=== PATIENT | male | born 1975 | race Caucasian/White ===

== ENCOUNTER 2017-03-17 16:53 | Emergency (ER) | payer SELFPAY ==
[2017-03-17] MEDS ORDERED: Lidocaine 1% 10 ML MDV INJECT ONE (17:22)
--- NOTE | 2017-03-17 18:17 | EDM.PDOC ---
ED HPI GENERAL MEDICAL PROBLEM - General Chief Complaint: Laceration Stated Complaint: LACERATION TO R MIDDLE FINGER Time Seen by Provider: 03/17/17 17:12 Source of Information: Reports: Patient History Limitations: Reports: No Limitations - History of Present Illness INITIAL COMMENTS - FREE TEXT/NARRATIVE: The patient presents with a laceration to his right 3rd finger. This happened while washing dishes. He cut it on some glass. He is right handed. His tetanus is up to date. He can move his finger good. Onset: Sudden Duration: Minutes: Location: Reports: Upper Extremity, Right (3rd finger) Quality: Reports: Sharp Severity: Mild Improves with: Reports: None Worsens with: Reports: None Context: Reports: Activity (washing dishes) Associated Symptoms: Reports: No Other Symptoms Right 3-Middle finger Pain Score (Numeric/FACES): 2 - Related Data Allergies Allergy/AdvReac Type Severity Reaction Status Date / Time No Known Allergies Allergy Verified 03/17/17 17:18 Home Meds: Home Meds . [No Known Home Meds] 03/17/17 [History] Past Medical History - Past Health History Medical/Surgical History: Denies Medical/Surgical History Social & Family History - Tobacco Use Smoking Status *Q: Never Smoker - Caffeine Use Caffeine Use: Reports: Coffee, Energy Drinks, Soda - Recreational Drug Use Recreational Drug Use: No ED ROS GENERAL - Review of Systems Review Of Systems: See Below Constitutional: Reports: No Symptoms HEENT: Reports: No Symptoms Respiratory: Reports: No Symptoms Cardiovascular: Reports: No Symptoms Endocrine: Reports: No Symptoms GI/Abdominal: Reports: No Symptoms : Reports: No Symptoms Musculoskeletal: Reports: Other (3cm laceration to his right 3rd finger) ED EXAM, SKIN/RASH Exam: See Below Exam Limited By: No Limitations General Appearance: Alert, No Apparent Distress Ears: Normal External Exam Nose: Normal Inspection Head: Atraumatic, Normocephalic Neck: Normal Inspection Respiratory/Chest: No Respiratory Distress Extremities: Other (3cm laceration at the base of his right 3rd finger on the dorsal aspect. No tendon laceration is seen. Good sensation and capillary refill distally.) ED SKIN PROCEDURES - Laceration/Wound Repair Right Finger Lac/Wound length In cm: 3 Appearance: Subcutaneous, Linear Distal NVT: Neuro & Vascular Intact, No Tendon Injury Anesthetic Type: Local Local Anesthesia - Lidocaine (Xylocaine): 1% Plain Skin Prep: Saline Exploration/Debridement/Repair: Wound Explored, In a Bloodless Field, Explored to Base Closed with: Sutures Suture Size: 4-0 # of Sutures: 5 Suture Type: Nylon, Interrupted, Simple Tetanus Status Addressed: Yes Complications: No Course - Vital Signs Last Recorded V/S: Last Vital Signs Temp 98.3 F 03/17/17 17:15 Pulse 61 03/17/17 17:15 Resp 20 03/17/17 17:15 BP 131/85 03/17/17 17:15 Pulse Ox 97 03/17/17 17:15 - Orders/Labs/Meds Meds: Medications Discontinued Medications Generic Name Dose Route Start Last Admin Trade Name Freq PRN Reason Stop Dose Admin Lidocaine HCl 10 ml 03/17/17 17:22 03/17/17 17:39 Xylocaine 1% INJECT 03/17/17 17:23 10 ml ONETIME ONE Administration Departure - Departure Time of Disposition: 18:20 Disposition: Home, Self-Care 01 Condition: Good Clinical Impression: Laceration of right middle finger Qualifiers: Encounter type: initial encounter Damage to nail status: without damage Foreign body presence: without foreign body Qualified Code(s): S61.212A - Laceration without foreign body of right middle finger without damage to nail, initial encounter - Discharge Information Referrals: PCP,None [Primary Care Provider] - Jane Abrams PA [Physician Photo [employer] Assistant] - 1 Week Additional Instructions: Soak your finger in warm soapy water 2 times per day and apply antibiotic ointment after. Have the sutures removed in 1 week. Look for any signs of infection such as redness, swelling, pain or drainage. If you see any of these signs, you may need an oral antibiotic so follow up.
== END 2017-03-17 18:33 | disposition home or self-care (01) ==
LOC: JD.ED 16:53
DX: S61.212A Laceration without foreign body of right middle finger without damage to nail, initial encounter (principal); W26.0XXA Contact with knife, initial encounter
CPT/HCPCS: 12002; 99282-25; 99283-25